=== PATIENT | female | born 1940 | race Caucasian/White ===

== ENCOUNTER → 2020-01-20 | Outpatient (CLI) | payer OTHER, MEDICARE ==
[~2020-01-20] MED LIST: HYDROCODONE-AP1 EAC6 PO; MELOXICAM7.5 MG PO; MULTIVITAMINS1 EAC7 PO; SIMVASTATIN40 MG PO; TRAMADOL 50 MG50 MG PO
== END ==
LOC: BC 09:06
PROVIDERS: ATTEND Obstetrics & Gynecology
DX: Z12.31 Encounter for screening mammogram for malignant neoplasm of breast (principal)